=== PATIENT | female | born 1970 | race Asian ===

== ENCOUNTER 2016-07-23 09:15 | Outpatient (CLI) | payer OTHER | END 2016-07-23 20:54 | disposition home or self-care (01) | LOC: SLB 09:15 | PROVIDERS: ATTEND Specialist | DX: E11.9 Type 2 diabetes mellitus without complications (principal) | CPT/HCPCS: 36415; 82947-TC; 83036 ==

== ENCOUNTER 2016-09-12 12:01 | Outpatient (CLI) | payer OTHER ==
[2016-09-12] MEDS ORDERED: IOHEXOL 50 ML IV ONE (13:23)
== END 2016-09-12 19:22 | disposition home or self-care (01) ==
LOC: SRD 12:01
PROVIDERS: ATTEND Specialist
DX: N97.9 Female infertility, unspecified (principal); N91.2 Amenorrhea, unspecified
CPT/HCPCS: 74740; Q9967

== ENCOUNTER 2016-11-19 12:12 | Outpatient (CLI) | payer OTHER ==
[2016-11-20 08:28] LABS: ESTRADIOL 55.8 pg/mL (.)
== END 2016-11-19 20:52 | disposition home or self-care (01) ==
LOC: SLB 12:12
PROVIDERS: ATTEND Specialist
DX: E28.2 Polycystic ovarian syndrome (principal)
CPT/HCPCS: 36415; 82670; 83002

== ENCOUNTER 2016-12-13 13:33 | Outpatient (CLI) | payer OTHER | END 2016-12-13 20:00 | disposition home or self-care (01) | LOC: SLB 13:33 | PROVIDERS: ATTEND Physician Assistant | DX: E11.9 Type 2 diabetes mellitus without complications (principal); N91.2 Amenorrhea, unspecified; M10.9 Gout, unspecified | CPT/HCPCS: 36415; 84144; 84550-TC; 84702-TC ==